=== PATIENT | female | born 1965 | race Caucasian/White ===

== ENCOUNTER 2016-07-03 10:22 | Day surgery (SDC) | payer OTHER ==
[~2016-07-03] VITALS: Ht 160 cm; Wt 54.2 kg
[2016-07-03] VITALS (19 sets, daily range): BP systolic 93–153; BP diastolic 53–89; PULSE 58–102; RESP 10–21; Ht 160 cm; Wt 54.2 kg
[~2016-07-03 10:22] MED LIST: ATOR20TA38 PO; LANT3I SC; LOSA25TA2 PO; NOVO3I SC; OMEG1CAP55 PO
[2016-07-03] MEDS ORDERED: CEFAZOLIN 2 GM/50 ML (PMX) 50 ML IVPB ONE (11:00)
[2016-07-03] MEDS ORDERED: SOD CHLORIDE 0.9% 1,000 ML IV SCH (11:00)
--- NOTE | 2016-07-03 11:35 | RADRPT ---
PROCEDURE: XR Chest. CLINICAL INDICATION: Preoperative chest TECHNIQUE: Chest AP portable. COMPARISON: 05/14/2015 FINDINGS: The mediastinal structures are unremarkable. The heart is normal in size and configuration. The pu lmonary vascularity is normal. The lung ordaz are unremarkable. No consolidation is identified. The pleural spaces are unremarkable. The axial skeleton is unremarkable. IMPRESSION: No active intrathoracic disease. RPTAT: HGDB .Josue Rosales MD, MD Date Time Electronically viewed and signed by .Josue Rosales MD, on 07/03/2016 11:35 .B/
[2016-07-03] MEDS ORDERED: SUCCINYLCHOLINE CHLORIDE 100 MG/5 ML SYG IV ONE (12:17)
[2016-07-03] MEDS ORDERED: LIDOCAINE 2% (SDV) 5 ML INJ ONE (12:17)
[2016-07-03] MEDS ORDERED: PROPOFOL 20 ML ONE (12:18)
[2016-07-03] MEDS ORDERED: FENTAnyl 50 MCG/ML VIAL ONE ×2 (12:18→13:50)
[2016-07-03] MEDS ORDERED: CEFAZOLIN 1 GM INJ ONE (12:18)
[2016-07-03] MEDS ORDERED: MIDAZOLAM 1 MG/ML 2 ML INJ ONE (12:18)
[2016-07-03] MEDS ORDERED: ROCURONIUM 50 MG INJ ONE (12:18)
[2016-07-03] MEDS ORDERED: BUPIVACAINE 0.25% (MPF) 30 ML INJ ONE (12:19)
[2016-07-03] MEDS ORDERED: DIPHENHYDRAMINE 50 MG INJ IV PRN (12:30)
[2016-07-03] MEDS ORDERED: KETOROLAC 30 MG INJ IV ONE (12:30)
[2016-07-03] MEDS ORDERED: GLUCOSE GEL 15 GRAM TUBE BUCCAL PRN (12:30)
[2016-07-03] MEDS ORDERED: MEPERIDINE 25 MG INJ IV PRN (12:30)
[2016-07-03] MEDS ORDERED: GLUCOSE GEL 15 GRAM TUBE PO PRN ×2 (12:30)
[2016-07-03] MEDS ORDERED: FENTAnyl 50 MCG/ML VIAL IV PRN (12:30)
[2016-07-03] MEDS ORDERED: ONDANSETRON 4 MG INJ IV PRN (12:30)
[2016-07-03] MEDS ORDERED: INSULIN ASPART [NOVOLOG] 3 ML PEN SC ONE (12:30)
[2016-07-03] MEDS ORDERED: GLUCAGON 1 MG INJ IM PRN (12:30)
[2016-07-03] MEDS ORDERED: PROCHLORPERAZINE 10 MG INJ IV PRN (12:30)
[2016-07-03] MEDS ORDERED: DEXTROSE 50% 50 ML SYRINGE IV PRN ×2 (12:30)
[2016-07-03] MEDS ORDERED: OXYCODONE/ACETAMINOPHEN (5/325) TAB PO PRN ×2 (12:30)
[2016-07-03] MEDS ORDERED: METOCLOPRAMIDE 10 MG INJ ONE (13:11)
[2016-07-03] MEDS ORDERED: ONDANSETRON 4 MG INJ ONE (13:11)
[2016-07-03] MEDS ORDERED: GLYCOPYRROLATE 0.4 MG INJ ONE (13:49)
[2016-07-03] MEDS ORDERED: NEOSTIGMINE 3 MG/3 ML SYRINGE ONE (13:49)
--- NOTE | 2016-07-03 14:08 | OPR ---
Date/Time of Note Date/Time of Note DATE: 07/03/16 TIME: 14:08 Operative Report Procedure Date: July 03, 2016 Preoperative Diagnosis symptomatic gallstones and cholelithiasis Postoperative Diagnosis same Operation Performed lap miesha Surgeon: iNno DONOVAN Specimens gallbladder Nino DONOVAN July 03, 2016 14:08
[2016-07-03] MEDS ORDERED: HYDROCODONE/APAP (5/325) TAB PO ONE (14:30)
[2016-07-03] MEDS: HYDROmorphONE (0.2 MG/ML) 10ML SYG IV PRN ×2 (14:37→14:57)
--- NOTE | 2016-07-03 14:45 | OPR ---
DATE OF OPERATION: 07/03/2016 INDICATION: This is a 51-year-old female with symptomatic gallstones. She requests surgical excisi on of her gallbladder. Risks, alternatives, benefits, and personnel were discussed with the patient . The patient expresses understanding and consents to the operation. PREOPERATIVE DIAGNOSIS: Symptomatic gallstones. POSTOPERATIVE DIAGNOSIS: Symptomatic gallstones. OPERATION: Laparoscopic cholecystectomy. SURGEON: Betty Garcia MD SPECIMENS: Gallbladder. COMPLICATIONS: None. ANESTHESIA: General. PROCEDURE: The patient was taken to the OR and prepped and draped in the usual sterile fashion. [place] rgical timeout was performed. IV antibiotics were given. Supraumbilical incision was made in the m idline with a 15 blade. Dissection cautery was carried down to the fascia, 0 Vicryl stay sutures we re placed on each side of the midline of the fascia. Fascia was cut with curved Law scissors. Bal loon Marbin trocar is introduced. Pneumoperitoneum was established. Mid epigastric 12 mm optical t rocar right upper quadrant and right upper flank, 5 mm optical trocars are placed under direct visua lization. Upon initial inspection, there were some adhesions to the gallbladder. The cystic duct was identifi ed. The critical view was established. The cystic duct and cystic artery are divided using a 35 mm [place] vascular stapler. The staple line was reinforced with clips. Gallbladder was taken off th e gallbladder bed. There was good hemostasis. Additionally, Surgicel SNoW was placed for additiona l hemostasis. Gallbladder was retrieved using EndoCatch bag. Ports were removed under direct visua lization. The 0 Vicryl stay sutures are tied down. Additionally, a [id number] 0 Vicryl suture was placed into the fascia. Skin was closed using skin jann. Local anesthesia was injected. D ry dressings were applied. Dictated By: BETTY GARCIA MD SB/HEATHER Conf#: [id number] DID#: [id number]
--- NOTE | 2016-07-03 21:30 | RADRPT ---
Vent Rate: 94 bpm RR Interval: 0 msec MI Interval: 138 msec QRS Duration: 84 msec QT Interval: 358 msec QTC Interval: 447 msec P-R-T [place]: 51 - 35 - 51 degrees Normal sinus rhythm Nonspecific ST abnormality Abnormal ECG Electronically Signed By: Jeff Coffman [id number]
== END 2016-07-03 16:35 | disposition home or self-care (01) ==
LOC: SDS 10:22
PROVIDERS: ATTEND Surgery
DX: K80.10 Calculus of gallbladder with chronic cholecystitis without obstruction (principal); I10 Essential (primary) hypertension; E11.9 Type 2 diabetes mellitus without complications; E78.5 Hyperlipidemia, unspecified
CPT/HCPCS: 47600; 71010; 82962; 84703; 88304; 93005; J0690; J1170; J1815; J1885; J2250; J2405; J2710; J2765; J3010; J7999

== ENCOUNTER 2016-12-04 20:16 | Emergency (ER) | payer OTHER ==
[~2016-12-04] VITALS: Ht 152.4 cm; Wt 54.5 kg
[2016-12-04 20:20] VITALS: Ht 152.4 cm; Wt 54.5 kg
[2016-12-04] MEDS ORDERED: HYDR25SU23 PR (23:19)
[2016-12-04] MEDS ORDERED: POLY17PO6 PO (23:19)
[2016-12-04] MEDS ORDERED: DOCU-144 PO (23:19)
--- NOTE | 2016-12-04 23:27 | ERD ---
ER Documentation Chief Complaint Chief Complaint constipated x 3 days, had a bm today with blood smear on toilet paper HPI 51-year-old female presents to emergency department for complaints of constipation for the last 3 days, had a bowel movement today, noticed some blood in the tissue paper. Patient denies any active rectal bleeding at this time. Patient does not complain of a bump in the rectal area. Patient was diagnosed with hemorrhoids sometime ago when she had her baby. Patient denies any abdominal pain. Patient denies any vomiting. Patient denies any fever or chills. Patient denies any other bleeding symptoms. ROS All systems reviewed and are negative except as per history of present illness. Medications Home Meds Active Scripts Polyethylene Glycol* (Miralax*) 17 Gm Powd.pack, 17 GM PO DAILY, #7 Prov:THERESE PHELPS NP 12/04/16 Docusate Sodium* (Colace*) 100 Mg Capsule, 100 MG PO TID, #30 CAP Prov:THERESE PHELPS NP 12/04/16 Hydrocortisone Acetate (Anusol-Hc) 25 Mg Supp.rect, 1 SUPP [place] BID Y for HEMORROID PAIN/ITCHING, #12 SUPP.RECT Prov:THERESE PHELPS NP 12/04/16 Insulin Aspart* (Novolog Insulin Pen*) 100 Unit/Ml Soln, 10 UNIT SC WITH MEALS for 30 Days, 3 Refills Prov:YIMI CADE 05/17/15 [place]-3/Dha/Epa/Fish Oil (FISH OIL EC 1,000 MG SOFTGEL) 1,000 Mg Cap, 1000 MG PO BID for 30 Days, 3 Refills Prov:YIMI CADE 05/17/15 Losartan Potassium* (Cozaar*) 25 Mg Tab, 25 MG PO BID for 30 Days, TAB 3 Refills Prov:YIMI CADE 05/17/15 Insulin Glargine* (Lantus*) 100 Unit/Ml Soln, 30 UNIT SC QHS for 30 Days, 3 Refills Prov:YIMI CADE 05/17/15 Atorvastatin Calcium* (Atorvastatin Calcium*) 20 Mg Tab, 40 MG PO HS for 30 Days , TAB 3 Refills Prov:YIMI CADE 05/17/15 Allergies Allergies: Coded Allergies: No Known Allergy (Verified , 05/17/15) PMhx/Soc History of Surgery: Yes (HYSTERECTOMY) Anesthesia Reaction: No Hx Neurological Disorder: No Hx Respiratory Disorders: No Hx Cardiac Disorders: Yes (HTN,HIGH CHOLEST) Hx Psychiatric Problems: No Hx Miscellaneous Medical Probl: No Hx Alcohol Use: No Hx Substance Use: No Hx Tobacco Use: No FmHx Family History: No coronary disease, No diabetes, No other Physical Exam Vitals Vital Signs Date Time Temp Pulse Resp B/P Pulse Ox O2 Delivery O2 Flow Rate FiO2 12/04/16 20:20 98.5 114 18 163/99 99 Physical Exam GENERAL: The patient is well developed and appropriate for usual state of health, in no apparent distress. CHEST: Clear to auscultation bilaterally. There are no rales, wheezes or rhonchi. HEART: Regular rate and rhythm. No murmurs, clicks, rubs or gallops. No S3 or S4. ABDOMEN: Soft, nontender and nondistended. Good bowel sounds. No rebound or guarding. No gross peritonitis. No gross organomegaly or masses. No Bower sign or McBurney point tenderness. BACK: No midline or flank tenderness. EXTREMITIES: Equal pulses bilaterally. There is no peripheral clubbing, cyanosis or edema. No focal swelling or erythema. Full range of motion. Grossly neurovascularly intact. NEURO: Alert and oriented. Cranial nerves 2-12 intact. Motor strength in all 4 extremities with 5/5 strength. Sensation grossly intact. Normal speech and gait. SKIN: There is no apparent rash or petechia. The skin is warm and dry. HEMATOLOGIC AND LYMPHATIC: There is no evidence of excessive bruising or lymphedema. No gross cervical, axillary, or inguinal lymphadenopathy.. RECTAL: Noted external hemorrhoid, no active bleeding at this time, good rectal tone. No redness, no swelling, no pilonidal cyst or perirectal abscess noted. Procedures/MDM Medical decision making: Patient symptoms most likely is consistent with external hemorrhoids due to constipation. No symptoms of active bleeding at this time. Good rectal tone. No symptoms of any other bleeding symptoms. No symptoms of any thrombosed hemorrhoids. Prescription was given for Anusol suppositories, Colace, MiraLAX. Patient was advised to see colorectal surgery for possible removal of hemorrhoids. Patient is advised to return to emergency department for any worsening symptoms. Disposition: Home. Stable. Departure Diagnosis: Primary Impression: Bleeding external hemorrhoids Additional Impression: Constipation Constipation type: unspecified constipation type Qualified Code: K59.00 - Constipation, unspecified constipation type Condition: Stable Patient Instructions: Constipation (Adult) THERESE PHELPS NP Dec 04, 2016 23:27
[2016-12-04 23:45] VITALS: BP 150/70; PULSE 75; RESP 16
== END 2016-12-04 23:44 | disposition home or self-care (01) ==
LOC: FTE 20:16
DX: K64.8 Other hemorrhoids (principal); I10 Essential (primary) hypertension; E11.9 Type 2 diabetes mellitus without complications; Z79.4 Long term (current) use of insulin
CPT/HCPCS: 99284

== ENCOUNTER 2017-05-01 23:57 | Emergency (ER) | END 2017-05-02 03:45 | disposition home or self-care (01) ==